=== PATIENT | male | born 1955 | race Caucasian/White ===

== ENCOUNTER → 2017-08-14 | Outpatient (CLI) | payer OTHER ==
[~2017-08-14] MED LIST: ACID CONTROL20 MG PO; ASA5UEC PO; AUGMENTIN 875875 M1 PO; AVELOX 400 MG400 MG PO; BACLOFEN 10MG T10 M1 PO; BACLOFEN 10MG T10 MG PO; CIPROFLOXACIN250 M2 PO; CIPROFLOXACIN500 M1 PO; DIAZEPAM 5 MG5 M1 OR; DIFLUCAN; DOXYCYCLINE 10100 M1 PO; FAMOTIDINE20 MG PO; MACROBID 100 M100 M1 PO; METHADONE HCL 110 M1 PO; SENNA PO; TRAMADOL 50 MG50 MG PO; ULTRAM 50MG TAB50 MG PO; ZANAFLEX4 M1 PO; ZYVOX600 MG PO
== END ==
LOC: CAT 09:15
DX: K62.89 Other specified diseases of anus and rectum (principal); M86.9 Osteomyelitis, unspecified; L89.899 Pressure ulcer of other site, unspecified stage